=== PATIENT | male | born 1995 | race African-American/Black ===

== ENCOUNTER 2019-01-26 09:31 | Emergency (ER) | payer MEDICAID, OTHER ==
[~2019-01-26] VITALS: Ht 182.9 cm; Wt 78.9 kg
[2019-01-26 10:26] VITALS: BP 121/79
== END 2019-01-26 10:53 | disposition home or self-care (01) ==
LOC: ER 09:33
DX: S01.511D Laceration without foreign body of lip, subsequent encounter (principal); F17.210 Nicotine dependence, cigarettes, uncomplicated; X58.XXXD Exposure to other specified factors, subsequent encounter